=== PATIENT | female | born 1960 | race Hispanic/Latino ===

== ENCOUNTER 2019-05-22 10:58 | Outpatient (CLI) | payer OTHER ==
--- NOTE | 2019-05-22 11:49 | XRay Report ---
CHEST 2 VIEWS INDICATION / CLINICAL INFORMATION: COUGH R05. COMPARISON: 04/19/2016 FINDINGS: SUPPORT DEVICES: None. HEART / MEDIASTINUM: No significant abnormality. LUNGS / PLEURA: No significant pulmonary or pleural abnormality. .No pneumothorax. ADDITIONAL FINDINGS: No significant additional findings. IMPRESSION: 1. No acute findings. Signer Name: Xavier Connell MD Signed: 05/22/2019 11:45 AM Workstation Name: [id number]
== END 2019-05-22 10:59 | disposition home or self-care (01) ==
LOC: SPVIMAG 10:58
PROVIDERS: ATTEND Internal Medicine
DX: R05 Cough (principal)
CPT/HCPCS: 71046